=== PATIENT | female | born 1985 | race Caucasian/White ===

== ENCOUNTER 2022-03-10 14:04 | Observation (INO) | payer OTHER ==
[~2022-03-10] VITALS: Ht 162.6 cm; Wt 80.7 kg
[2022-03-10 15:15] LABS: HEMOGLOBIN 11.7 gm/dl (12.3-15.3); RED BLOOD COUNT 4.81 M/UL (4.00-5.10); WHITE BLOOD COUNT 13.7 K/UL (4.5-11.0)
[2022-03-10 15:47] LABS: BUN/CREATININE RATIO 14 (0-10)
[2022-03-10] MEDS ORDERED: OMEPRAZOLE40 MG PO (18:26)
[2022-03-10] MEDS ORDERED: FAMOTIDINE20 MG PO (18:26)
[2022-03-10] MEDS ORDERED: ZOFRAN ODT 4 MG4 MG PO (18:26)
[2022-03-10] MEDS ORDERED: SUCRALFATE1 GM PO (18:27)
== END 2022-03-11 10:10 | disposition home or self-care (01) ==
LOC: ER1 14:04 → CDU 17:55 → M/S 18:14
PROVIDERS: Emergency Medicine; ADMIT Surgery
PROC: 0FT44ZZ Resection of Gallbladder, Percutaneous Endoscopic Approach (ICD-10-PCS; principal; 2022-03-10 19:01)
DX: K80.12 Calculus of gallbladder with acute and chronic cholecystitis without obstruction (principal); K82.1 Hydrops of gallbladder; K21.9 Gastro-esophageal reflux disease without esophagitis; F17.290 Nicotine dependence, other tobacco product, uncomplicated; R59.0 Localized enlarged lymph nodes; Z79.899 Other long term (current) drug therapy; Z88.2 Allergy status to sulfonamides
CPT/HCPCS: 36415; 80053; 81001; 83690; 85025; 87040; 96374; 96375; 99284; G0378; J0690; J1100; J1885; J2001; J2250; J2270; J2405; J2704; J3010